=== PATIENT | female | born 1930 | race African-American/Black ===

== ENCOUNTER 2017-06-01 10:00 | Observation (INO) | payer MEDICARE, OTHER ==
[~2017-06-01] VITALS: Ht 157.5 cm; Wt 71.2 kg
[~2017-06-01 10:00] MED LIST: ASPI-785; FLUT1DIS; FURO-152 PO; MOTRIN; POTASSIUM; TIOT18CA3
[2017-06-01] MEDS ORDERED: NITROGLYCERIN OINT 1GM/INCH UDPKT TD STA (10:15)
[2017-06-01] MEDS ORDERED: ONDANSETRON HCL 4MG/2ML VIAL IV STA (10:15)
[2017-06-01] MEDS ORDERED: MORPHINE SULFATE 4 MG/ML CPJ (NOT FOR IM USE) IV STA (10:15)
[2017-06-01] MEDS ORDERED: ASPIRIN 81MG TABLET PO STA (10:15)
[2017-06-01 10:52] LABS: EOSINOPHILS % 3.1 % (0.0-5.0); HEMATOCRIT. 40.3 % (36.0-48.0); HEMOGLOBIN. 13.3 g/dL (12.0-16.0); MEAN CORPUSCULAR HEMOGLOBIN 30.5 pg (28.0-32.0); MEAN CORPUSCULAR VOLUME 92.2 fL (81.0-99.0); MONOCYTES % 6.7 % (2.0-8.0); NEUTROPHILS % 63.2 % (40.0-76.0); PLATELET 269 x1000/uL (130-400); RED BLOOD CELL COUNT 4.37 mill/uL (4.2-5.4); RED CELL DISTRIBUTION WIDTH 15.8 % (11.6-14.6)
[2017-06-01 11:05] LABS: INR 1.1; PARTIAL THROMBOPLASTIN TIME 25.7 sec (23.4-31.0); PROTHROMBIN TIME 11.7 sec (9.4-11.6)
[2017-06-01 11:10] LABS: CARBON DIOXIDE 31 mEq/L (21-32); CHLORIDE 102 mEq/L (98-107); CREATINE KINASE 60 IU/L (26-192); TROPONIN I < 0.02 ng/mL (0.00-0.04)
[2017-06-01 11:11] LABS: CREATINE KINASE MB FRACTION 0.6 ng/mL (0.5-3.6)
[2017-06-01 20:00] VITALS: BP 121/50
[2017-06-01] MEDS ORDERED: DONE5TAB33 PO (22:35)
[2017-06-01] MEDS ORDERED: MULT80TA PO (22:35)
[2017-06-01] MEDS ORDERED: UMEC62.5 IH (22:35)
[2017-06-01] MEDS ORDERED: FLUT1BLS IH (22:35)
[2017-06-01] MEDS ORDERED: POTA20TA82 PO (22:35)
[2017-06-01] MEDS ORDERED: IPRATROPIUM/ALBUTEROL 0.5-3(2.5)MG/3ML NEB HHN PRN (23:15)
[2017-06-01] MEDS ORDERED: SODIUM CHLORIDE 0.9% 1,000 ML IV SCH (23:15)
[2017-06-01] MEDS ORDERED: HYDROCODONE/ACETAMINOPHEN 5/325MG TABLET PO PRN (23:15)
[2017-06-01] MEDS ORDERED: TEMAZEPAM 15MG CAPSULE PO PRN (23:15)
[2017-06-01 23:33] VITALS: BP 121/50
[2017-06-02] VITALS: BP 120/60
[2017-06-02 04:00] VITALS: BP 133/80
[2017-06-02] MEDS ORDERED: METHYLPREDNISOLONE SOD SUCC 40 MG/ML VIAL IV SCH ×2 (06:00)
[2017-06-02] MEDS ORDERED: LEVOFLOXACIN 500MG PREMIX 100 ML IV SCH ×2 (06:00→17:45)
[2017-06-02] MEDS: PANTOPRAZOLE 40MG DR TABLET PO SCH (06:35)
[2017-06-02 08:00] VITALS: BP 110/54
[2017-06-02] MEDS: METHYLPREDNISOLONE SOD SUCC 40 MG/ML VIAL IV SCH ×2 (09:50→20:50)
[2017-06-02] MEDS: ASPIRIN 81MG TABLET PO SCH (09:51)
[2017-06-02] MEDS: ENOXAPARIN 40MG/0.4ML SYR SUBCUT SCH (09:51)
[2017-06-02] MEDS ORDERED: LEVOFLOXACIN 500MG TABLET PO NR (11:00)
[2017-06-02 11:38] VITALS: BP 111/50
[2017-06-02 15:45] VITALS: BP 118/51
[2017-06-02] MEDS ORDERED: POTASSIUM CHLORIDE 20MEQ TABLET SR PO NR (17:48)
[2017-06-02] MEDS: DONEPEZIL HCL 5MG TABLET PO SCH (19:06)
[2017-06-02 20:00] VITALS: BP 114/50
[2017-06-03] VITALS: BP 116/53
[2017-06-03 04:00] VITALS: BP 98/50
[2017-06-03] MEDS: PANTOPRAZOLE 40MG DR TABLET PO SCH (06:40)
[2017-06-03 06:58] LABS: BASOPHILS % 0.1 % (0.0-2.0); HEMATOCRIT. 38.3 % (36.0-48.0); HEMOGLOBIN. 12.8 g/dL (12.0-16.0); MEAN CORPUSCULAR HEMOGLOBIN 30.6 pg (28.0-32.0); MEAN CORPUSCULAR VOLUME 91.5 fL (81.0-99.0); MEAN PLATELET VOLUME 8.5 fl (7.4-10.4); MONOCYTES % 2.2 % (2.0-8.0); NEUTROPHILS % 85.7 % (40.0-76.0); PLATELET 258 x1000/uL (130-400); RED BLOOD CELL COUNT 4.18 mill/uL (4.2-5.4); RED CELL DISTRIBUTION WIDTH 15.2 % (11.6-14.6)
[2017-06-03 08:00] VITALS: BP 110/48
[2017-06-03 08:03] LABS: CHLORIDE 107 mEq/L (98-107); HDL CHOLESTEROL 40 mg/dL (40-59)
[2017-06-03 08:14] LABS: CARBON DIOXIDE 26 mEq/L (21-32); LDL CHOLESTEROL 99 mg/dL (5-100); TROPONIN I < 0.02 ng/mL (0.00-0.04)
[2017-06-03] MEDS: ASPIRIN 81MG TABLET PO SCH (08:31)
[2017-06-03] MEDS: DONEPEZIL HCL 5MG TABLET PO SCH (08:31)
[2017-06-03] MEDS: ENOXAPARIN 40MG/0.4ML SYR SUBCUT SCH (08:31)
[2017-06-03] MEDS: METHYLPREDNISOLONE SOD SUCC 40 MG/ML VIAL IV SCH (08:31)
[2017-06-03] MEDS ORDERED: LEVOFLOXACIN 250MG TABLET PO SCH (11:00)
[2017-06-03 12:00] VITALS: BP 112/45
[2017-06-03 16:35] VITALS: BP 116/51
[2017-06-03 17:16] VITALS: BP 119/48
[2017-06-04] MEDS ORDERED: LEVOFLOXACIN 500MG PREMIX 100 ML IV SCH (06:00)
== END 2017-06-03 17:50 | disposition home or self-care (01) ==
LOC: ER 10:02 → 6WST 11:09 → INTOOBSV 11:09 → EDBEDREQ 11:45 → ENRESERV 15:25 → 6WST 20:43
PROVIDERS: ADMIT Internal Medicine; ATTEND Internal Medicine
DX: R07.89 Other chest pain (principal); J44.9 Chronic obstructive pulmonary disease, unspecified; J84.9 Interstitial pulmonary disease, unspecified; I10 Essential (primary) hypertension; R91.8 Other nonspecific abnormal finding of lung field; F03.90 Unspecified dementia, unspecified severity, without behavioral disturbance, psychotic disturbance, mood disturbance, and anxiety; Z87.891 Personal history of nicotine dependence; Z99.81 Dependence on supplemental oxygen; Z85.118 Personal history of other malignant neoplasm of bronchus and lung
CPT/HCPCS: 36415; 71010; 80053; 80061; 82550; 82553; 83690; 83880; 84132; 84443; 84484; 85025; 85610; 85730; 93005; 93306; 96361; 96365; 96372; 96375; 96376; 99291; G0378; J1650; J1956; J2920; J7030

== ENCOUNTER 2017-06-08 10:25 | Emergency (ER) | payer OTHER ==
[~2017-06-08] VITALS: Ht 172.7 cm; Wt 63.0 kg
[~2017-06-08 10:25] MED LIST changes: +DONE5TAB33 PO; +FLUT1BLS IH; +MULT80TA PO; +POTA20TA82 PO; +UMEC62.5 IH
[2017-06-08 11:59] LABS: BASOPHILS % 0.3 % (0.0-2.0); EOSINOPHILS % 1.6 % (0.0-5.0); HEMATOCRIT. 41.1 % (36.0-48.0); HEMOGLOBIN. 13.9 g/dL (12.0-16.0); LYMPHOCYTES % 17.8 % (20.0-50.0); MEAN CORPUSCULAR HEMOGLOBIN 31.4 pg (28.0-32.0); MEAN CORPUSCULAR VOLUME 92.8 fL (81.0-99.0); MEAN PLATELET VOLUME 8.3 fl (7.4-10.4); MONOCYTES % 6.1 % (2.0-8.0); NEUTROPHILS % 74.2 % (40.0-76.0); PLATELET 257 x1000/uL (130-400); RED BLOOD CELL COUNT 4.43 mill/uL (4.2-5.4); RED CELL DISTRIBUTION WIDTH 15.6 % (11.6-14.6)
[2017-06-08 12:05] LABS: CARBON DIOXIDE 31 mEq/L (21-32); CHLORIDE 104 mEq/L (98-107)
[2017-06-08 12:18] LABS: INR 1.1; PROTHROMBIN TIME 11.5 sec (9.4-11.6)
[2017-06-08 13:01] VITALS: BP 123/63
== END 2017-06-08 13:07 | disposition home or self-care (01) ==
LOC: ER 11:12
DX: S30.1XXA Contusion of abdominal wall, initial encounter (principal); J44.9 Chronic obstructive pulmonary disease, unspecified; I10 Essential (primary) hypertension; F03.90 Unspecified dementia, unspecified severity, without behavioral disturbance, psychotic disturbance, mood disturbance, and anxiety; Z79.82 Long term (current) use of aspirin; Z85.118 Personal history of other malignant neoplasm of bronchus and lung; X58.XXXA Exposure to other specified factors, initial encounter; Y93.89 Activity, other specified; Y92.89 Other specified places as the place of occurrence of the external cause; Y99.8 Other external cause status
CPT/HCPCS: 36415; 74176; 80053; 83690; 85025; 85610; 99285